=== PATIENT | female | born 1940 | race Two or more races ===

== ENCOUNTER 2018-07-03 11:42 | Outpatient (CLI) | payer MEDICARE, OTHER ==
--- NOTE | 2018-07-03 12:26 | Diagnostic Imaging Report ---
Indication: Cough Technique: XRAY Chest 2v Comparison: None Findings: Heart size within normal limits. There is mild atherosclerotic calcifications in the aorta. There is a density behind the heart with air-fluid level compatible with a moderate-sized hiatal hernia. There is no focal airspace consolidation suggest pneumonia. Mediastinal contours are sharp. There is no pneumothorax. There are degenerative changes of the spine. No acute osseous abnormality. Impression: Moderate-sized hiatal hernia. No focal consolidation suggest pneumonia. No pleural effusion or pneumothorax.
== END 2018-07-03 13:42 | disposition home or self-care (01) ==
LOC: RAD 11:42
DX: R05 Cough (principal); K44.9 Diaphragmatic hernia without obstruction or gangrene; I70.0 Atherosclerosis of aorta
CPT/HCPCS: 71046